=== PATIENT | female | born 2000 | race Two or more races ===

== ENCOUNTER 2023-12-07 16:07 | Emergency (ER) | payer OTHER, SELFPAY ==
[2023-12-07 16:26] VITALS: BP 127/88; PULSE 102; RESP 16; TEMP 37.3; O2SAT 99
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
== END 2023-12-07 17:00 | disposition home or self-care (01) ==
PROVIDERS: Emergency Provider Nurse Practitioner
DX: S93.402A Sprain of unspecified ligament of left ankle, initial encounter (principal); S96.912A Strain of unspecified muscle and tendon at ankle and foot level, left foot, initial encounter; V18.4XXA Pedal cycle driver injured in noncollision transport accident in traffic accident, initial encounter; Y93.55 Activity, bike riding; F90.9 Attention-deficit hyperactivity disorder, unspecified type
CPT/HCPCS: 99202; G0463